=== PATIENT | male | born 1990 | race Two or more races ===

== ENCOUNTER 2023-09-30 15:00 | Emergency (ER) | payer OTHER, SELFPAY ==
[2023-09-30 15:24] VITALS: BP 127/86; PULSE 78; RESP 18; TEMP 36.6; O2SAT 97
--- NOTE | 2023-09-30 16:56 | ED.GENADULT ---
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 Says the symptoms have been going on for the past 2 days. He has had several siblings have family members who have had in the past. He states concerning his Grayson's palsy. He states he is also having right ear pain and right paraspinal neck pain. Next cancer Gyne the past for 5 days. He did take a injection no sent to him by his family in [place]. It was a [employer]bion IM injection. He has not taken the pill form. He states this has helped with his pain. Denies numbness, weakness, headache, vision changes, abdominal pain, chest pain, shortness of breath. He he does states his right eye has been getting dry due to being unable 2 [place] Related Data Previous Rx's Medication Instructions Recorded prednisone 20 mg tablet 60 mg (3 x 20 mg) PO DAILY 7 days 09/30/23 #21 tabs Allergies Allergy/AdvReac Type Severity Reaction Status Date / Time No Known Drug Allergies Allergy Verified 09/30/23 15:23 Review of Systems Status of ROS: Reports: 10 or more systems reviewed and unremarkable except as noted in History and below [facility] Social History Smoking Status: Never smoker Do you use any of these nicotine containing products: None Second hand tobacco smoke exposure: No How often do you have a drink containing alcohol: never How often do you have six or more drinks on one occasion: Never AUDIT-C Alcohol total score: 0 Non-prescribed substance use: over the counter (eg: immodium) Non-prescribed substance use details: medication from [facility] service: No Exam Narrative: Exam Narrative: Const: Well-nourished, Well-developed, in mild distress Eyes: PERRL, no conjunctival injection, and symmetrical lids HENT: Atraumatic external nose and ears. Moist mucous membranes. Normal tympanic membranes bilaterally, no rashes seen within the external auditory ear canals Neck: Symmetric, trachea midline, No thyromegaly. CVS: RRR, No murmurs or gallops. Peripheral pulses 2+ and equal in all extremities RESP: Unlabored respiratory effort. Clear to auscultation bilaterally. GI: Nontender/Nondistended, No rebound or guarding. MSK:Extremities w/o deformity, Normal Active ROM. No tenderness to palpation noted to the neck Skin: Warm, Dry. No rashes or lesions. Neuro: Normal Muscle tone, Cranial nerves 2-12 grossly intact other than paralysis noted to the right side facial nerve, normal [id number], normal [id number], normal gait, normal strength 5/5 upper lower extremities bilaterally, normal sensation upper and lower extremities bilaterally, normal rapid alternating movements. Psych: Awake, Alert, & Oriented x3. Appropriate mood and affect. Const: Vital Signs, click to edit/add: Vital Signs - 24 hr 09/30/23 15:24 Temperature 97.8 F Pulse Rate [Pulse Oximeter] 78 Respiratory Rate 18 Blood Pressure [Ri ght Upper Arm] 127/86 Pulse Oximetry 97 Oxygen Delivery Me thod Room Air Course Vital Signs Vital signs: Initial Vital Signs Temperature 97.8 F 09/30/23 15:24 Temperature Source Temporal Artery Scan 09/30/23 15:24 Pulse Rate 78 09/30/23 15:24 Pulse Rhythm Regular 09/30/23 15:24 Respiratory Rate 18 09/30/23 15:24 Blood Pressure 127/86 09/30/23 15:24 Blood Pressure Mean 99 09/30/23 15:24 Blood Pressure Position Sitting 09/30/23 15:24 Pulse Oximetry 97 09/30/23 15:24 Oxygen Delivery Method Room Air 09/30/23 15:24 Vital Signs Temperature 97.8 F 09/30/23 15:24 Pulse Rate 78 09/30/23 15:24 Respiratory Rate 18 09/30/23 15:24 Blood Pressure 127/86 09/30/23 15:24 Pulse Oximetry 97 09/30/23 15:24 Oxygen Delivery Method Room Air 09/30/23 15:24 Temperature 97.8 F 09/30/23 15:24 Pulse Rate 78 09/30/23 15:24 Respiratory Rate 18 09/30/23 15:24 Blood Pressure 127/86 09/30/23 15:24 Pulse Oximetry 97 09/30/23 15:24 Oxygen Delivery Method Room Air 09/30/23 15:24 Medical Decision Making [facility] Narrative Medical decision making narrative: Patient is a 33-year-old male presenting emergency department for what appears to be Grayson's palsy. Did a thorough ear exam and no signs of Rosy Constantino syndrome at this time. Symptoms involve upper and lower portion of the face unlikely to be a stroke. Neck pain is treated with [id number] medicine. I believe this needs to be worked up. Denies any injuries to his neck and all the pain is paraspinal. We will start him on steroids and symptoms occurred within the past 72 hours. There is no evidence that antivirals and benefits without this point. Patient will be discharged home and he is agreeable to this plan. Discharge Plan Discharge Clinical Impression: Grayson's palsy Patient Disposition: Home, Self-Care Condition: Stable Instructions: Grayson Palsy (ED) Additional Instructions: Take Tylenol ibuprofen for pain. Take the steroids as directed. Follow up with the primary care provider. Your ear pain is likely secondary to your Grayson's palsy. Use artificial tear eyedrops for your right eye dryness. [place] acetaminophen y/o ibuprofeno para el dolor. [place] los esteroides seg?n las indicaciones. Gianna marcso andie de seguimiento con el proveedor de atenci?n primaria. Es probable que [place] dolor de o?do sea secundario a [place] par?ludin Sykes. Use gotas oft?lmicas de l?grimas artificiales para la sequedad del sangeeta derecho. Prescriptions: New prednisone 20 mg tablet 60 mg PO DAILY 7 Days Qty: 21 0RF Stand Alone Forms: [employer] Info Instructions
== END 2023-09-30 17:12 | disposition home or self-care (01) ==
LOC: ED 17:01
PROVIDERS: Emergency Provider Student in an Organized Health Care Education/Training Program
DX: G51.0 Bell's palsy (principal)
CPT/HCPCS: 99283; T1013